=== PATIENT | female | born 2000 | race Caucasian/White ===

== ENCOUNTER 2025-01-10 06:56 | Outpatient (REF) | payer BC, SELFPAY ==
--- NOTE | ~2025-01-10 | US_ITS ---
EXAMINATION: US PELVIS TRANSABDOMINAL AND TRANSVAGINAL HISTORY: PELVIC PAIN, PT HAS IUD COMPARISON: There are no prior studies for comparison. TECHNIQUE: Transabdominal and endovaginal real-time 2D kim-scale ultrasound was performed. FINDINGS: Uterus: The uterus is normal in size, measuring 6.1 x 1.8 x 3.9 cm. Myometrium has a normal echotexture. No fibroids are identified. Endometrium: The endometrial stripe measures 2 mm in thickness. An IUD is noted in appropriate position in the endometrial cavity. Right ovary: The right ovary measures 4.0 x 2.5 x 2.0 cm. The right ovary is normal in size and echotexture. Left ovary: The left ovary measures 3.1 x 1.8 x 1.8 cm. The left ovary is normal in size and echotexture. Pelvic fluid: none. US/US pelvic and transvaginal IMPRESSION: Unremarkable pelvic ultrasound. IUD in appropriate position in the endometrial cavity. Electronically signed by: Anoop Melgoza MD 01/11/2025 07:04 AM EDT
== END 2025-01-10 06:57 | disposition home or self-care (01) ==
LOC: HO.UMASIMG 06:56
PROVIDERS: Visit Provider Nurse Practitioner Women's Health
DX: R10.2 Pelvic and perineal pain (principal)
CPT/HCPCS: 76830; 76856

== ENCOUNTER → 2025-01-10 15:00 | Outpatient (BNV) | payer BC, SELFPAY | PROVIDERS: Visit Provider Radiology Diagnostic Radiology | DX: R10.2 Pelvic and perineal pain (principal); Z97.5 Presence of (intrauterine) contraceptive device | CPT/HCPCS: 76830; 76856 ==